=== PATIENT | female | born 1940 | race Caucasian/White ===

== ENCOUNTER 2024-07-12 16:14 | Inpatient (IN) | payer MEDICARE, MEDICAID, SELFPAY ==
[2024-07-12] VITALS (11 sets, daily range): BP systolic 144–183; BP diastolic 81–94; PULSE 60–98; RESP 16–20; TEMP 36.1–37.1; O2SAT 95–100; BMI 29.2
--- NOTE | 2024-07-12 16:59 | EDNOTE_ITS ---
ED General RME/HPI General Chief complaint: General Adult/Misc Complain Stated complaint: HIGH BLOOD SUGAR Time Seen by Provider: 07/12/24 16:15 Arrival date/time: 07/12/24 16:14 CC: Hyperglycemia HPI patient presents the ER via EMS clutching a comfortable EMS report the patient has stable vital signs. Patient is awake. Reported the patient was given several doses of insulin Route of delivery is unknown, the patient's blood sugar continues to rise . Review of the paperwork given with the patient from [facility] shows the patient was given a total of 22 units since 10 AM with a rising glucose that went from 200-500. Patient is awake with slurred speech. 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 Unaware if this is a baseline mentation or not. Patient is a DNR with selective treatment. Related Data Home Medications ?Medication ?Instructions ?Recorded ?Confirmed bisacodyl 10 mg rectal suppository 10 mg PA Q72H PRN C onstipation 03/21/23 10/15/23 (Dulcolax (bisacodyl)) acetaminophen 325 mg tablet 325 mg PO QID PRN Pain, Mi ld 10/15/23 10/15/23 (Tylenol) artificial tears(hypromellose) 0.3 1 drp ophthalmic (e ye) Q6H PRN Dry 10/15/23 10/15/23 % eye drops Eyes insulin lispro 100 unit/mL See Protocol subcut AC 09/2910/15/23 subcutaneous pen prochlorperazine 25 mg rectal 25 mg PA Q8HR PRN Vomiti ng 10/15/23 10/15/23 suppository Allergies Allergy/AdvReac Type Severity Reaction Status Date / Time carvedilol Allergy Verified 04/08/21 21:24 Cephalosporins Allergy Verified 04/08/21 21:24 Penicillins Allergy Verified 04/08/21 21:24 Past Medical History Past Medical History NEUROLOGIC: Positive Neurological Disorders and Dementia CARDIAC: Positive Cardiac Disorders and Hypertension; Negative Congestive Heart Failure RESPIRATORY: Positive Asthma; Negative Chronic Obstructive Pulmonary Disease (COPD) GENITOURINARY: Positive Renal Disease MUSCULOSKELETAL: Positive Gout ENDOCRINE: Positive Diabetes Mellitus Type 2; Negative Diabetes Mellitus Type 1 HEMATOLOGIC: Negative Sickle Cell Disease PSYCHO/SOCIAL: Positive Depression OTHER HISTORY: Positive Falls Social History SMOKING STATUS: Unknown if ever smoked SUBSTANCE USE: unknown ED Exam Narrative Physical exam: [General: Appears not in any acute distress Head normocephalic HEENT: Within acceptable limits Neck is supple nontender Chest equal chest rise nontender to palpation Respiratory: Clear to auscultation no wheezes crackles or rubs CV: Rate rhythm is regular no murmurs rubs or clicks Abdomen is soft nontender no masses positive bowel sounds all 4 quadrants Back: No CVA tenderness no spinous process tenderness from cervical spine thoracic and lumbar spine Skin: Intact no petechiae rash induration ulceration or crepitus Extremities: Moving all extremity against resistance cap refill less than 2 seconds neurosensory intact Neuro: Awake moving all extremities spontaneously. Course Quality Measures none Orders Category Date Time Status Glucose [Bedside Blood Glucose] NOW Care 07/12/24 16:16 Active Insert IV NOW Care 07/12/24 17:08 Active BMP [Basic Metabolic Panel] Stat Lab 07/12/24 20:14 Completed CBC Stat Lab 07/12/24 17:05 Completed CMP [Comprehensive Metabolic Panel] Stat Lab 07/12/24 17:05 Completed Potassium Stat Lab 07/12/24 18:05 Completed Urinalysis Stat Lab 07/12/24 16:45 Ordered ALBUTEROL RT 0.5ml [Proventil Rt 0.5ml] Med 07/12/24 18:36 Discontinued 2.5 mg INH X1 ONE Calcium Gluconate 10% Inj Med 07/12/24 18:36 Discontinued 1 gm IV X1 ONE Calcium Gluconate 10% Inj Med 07/12/24 18:45 Discontinued 1 gm IV X1 ONE Dextrose 50% Syr [D50w Syringe Abboject] Med 07/12/24 18:36 Discontinued 25 ml IV X1 ONE Insulin Regular Med 07/12/24 18:36 Discontinued 5 unit IV X1 ONE Sodium Chloride 0.9% 1000 ml [Ns] 1,000 ml Med 07/12/24 20:53 Active IV 999 mls/hr Sodium Chloride Rt Rosa 0.9% [NS Rt Rosa 0.9%] Med 07/12/24 18:36 Active 3 ml INH PRN PRN Vital Signs Vital signs: Vital Signs Temperature 98.5 F 07/12/24 16:43 Pulse Rate 98 07/12/24 16:43 Respiratory Rate 18 07/12/24 16:43 Blood Pressure 183/81 H 07/12/24 16:43 Pulse Oximetry (%) 98 07/12/24 16:43 Oxygen Delivery Method Room Air 07/12/24 16:43 [facility] Patient data External records reviewed:: [facility] previous records and EMS form Clinical information provided by:: patient and EMS Social determinants that could affect healthcare access:: none Patient has the following chronic illnesses:: CVA diabetes anxiety dementia How is presenting disease/condition affected by chronic disease/condition?: u neffected by Evaluation data The following diagnostics were reviewed and interpreted by me:: lab results Lab and/or radiology exams considered but not ordered:: CBC shows no leukocytosis H&H of 9.8 and 29.7 respectively platelet count 106. CMP shows a potassium of 5.4 after being corrected from 6.4-6.0 progressively chloride of 118 gap of 6 BUN 51 creatinine 1.8 glucose 175 mild transaminitis T. bili 8.2 Interpretation Summary: Patient was initially brought for hyperkalemia after giving large doses of insulin at [facility] care facility however we also found out the patient and elevated potassium initially was 6.4 having had a redrawn to see if it was an apparent draw, the potassium came back 6.0. After intervention with the exception of Kayexalate potassium is dropped to 5.4. This time is expected patient needs more time and additional medications to decrease the potassium patient's case discussed with Dr. Terry who agrees to accept the patient for hyperkalemia. Medications Medications considered but not ordered:: None Medication administrations:: Medication Administration History Sodium Chloride (Ns) 1,000 mls @ 999 mls/hr IV .Q1H1M ONE Stop: 07/12/24 21:53 Sodium Chloride (Sodium Chloride Rt Rosa 0.9% 3 Ml Nebu) 3 ml INH PRN PRN PRN Reason: SOLN Stop: 08/11/24 18:35 Last Admin: 07/12/24 18:44 Dose: 3 ml Documented By: Discontinued Medications Albuterol (Albuterol Rt 2.5 Mg/0.5 Ml Nebu) 2.5 mg INH X1 ONE Stop: 07/12/24 18:37 Last Admin: 07/12/24 18:44 Dose: 2.5 mg Documented By: Calcium Gluconate (Calcium Gluconate 10% Inj 1 Gm/10 Ml Vial) 1 gm IV X1 ONE Stop: 07/12/24 18:37 Last Admin: 07/12/24 19:06 Dose: Not Given Documented By: CCT Non-Admin Reason: Duplicate Medication on eMAR Calcium Gluconate (Calcium Gluconate 10% Inj 1 Gm/10 Ml Vial) 1 gm IV X1 ONE Stop: 07/12/24 18:46 Last Admin: 07/12/24 18:45 Dose: 1 gm Documented By: DB Dextrose (Dextrose 50%-Water Inj 50 Ml Syringe) 25 ml IV X1 ONE Stop: 07/12/24 18:37 Last Admin: 07/12/24 18:45 Dose: 25 ml Documented By: DB Insulin Human Regular (Insulin Hum Regular 1 Unit/0.01 Ml (Per Unit)) 5 unit IV X1 ONE Stop: 07/12/24 18:37 Last Admin: 07/12/24 18:48 Dose: 5 unit Documented By: JANIS Co-signed By: SHELBIE None Consultations Consultation(s) initiated? (list below): No Diagnosis Differential Diagnosis ED Complaint MDM: Hyperglycemia high per kalemia NEVA Most likely diagnosis given after review of the tests above:: Acute on chronic NEVA, hyperkalemia Admission Indicated Admission indicated?: indicated Explain why admission is indicated or not indicated:: Further medical management Admission Request Was there a request for admission?: No Disposition Plan Disposition Plan: Admit Medical Decision Making Differential Diagnosis Differential Diagnosis: Hyperglycemia high per kalemia NEVA Lab Data 07/12/24 17:05 07/12/24 20:14 Labs: Lab Results 07/12/24 07/12/24 07/12/24 Range/Units 17:05 18:05 20:14 WBC 4.7 (3.6-11.0) Thou/mm3 RBC 3.21 L (4.00-5.20) Miln/mm3 Hgb 9.8 L (12.0-16.0) g/dL Hct 29.7 L (36.0-46.0) % MCV 93 (80-100) fL MCH 30.5 (25.0-35.0) pg MCHC 33.0 (31.0-37.0) g/dl RDW Std Deviation 51.2 H (36.4-46.3) fL Plt Count 106 L (140-440) Thou/mm3 Neut % (Auto) 56 (37-80) % Lymph % (Auto) 34 (10-50) % Curry % (Auto) 7 (0-12) % Eos % (Auto) 3 (0-10) % Baso % (Auto) 0 (0-2.5) % Neut # (Auto) 2.6 (1.8-7.7) Thou/mm3 Lymph # (Auto) 1.6 (1.0-4.8) Thou/mm3 Curry # (Auto) 0.3 (0.0-0.8) Thou/mm3 Eos # (Auto) 0.1 (0.0-0.5) Thou/mm3 Baso # (Auto) 0.0 (0.0-0.2) Thou/mm3 Immature Gran # (Auto) 0.01 H (0.00-0.00) Thou/mm3 Absolute Nucleated RBC 0.00 (0.00-0.00) Thou/mm3 Immature Gran % 0 (0-0) % Nucleated RBC % 0 (0) /100 WBC Sodium 142 145 (136-145) mMol/L Potassium 6.4 H* 6.0 H 5.4 H D (3.4-5.1) mMol/L Chloride 116 H 118 H (98-107) mMol/L Carbon Dioxide 21.5 21.0 (20.0-31.0) mMol/L Anion Gap 5 L 6 L (7-16) BUN 55 H 51 H (9-23) mg/dL Creatinine 1.9 H 1.8 H (0.6-1.3) mg/dL Estim Creat Clear Calc 22.5 L 23.8 L (>60) mL/min eGFR 26 L 28 L (60 - ) See Note BUN/Creatinine Ratio 29 H 28 H (12-20) Ratio Glucose 319 H 175 H D (74-106) mg/dL Calculated Osmolality 310 H 306 H (275-295) Calcium 9.8 10.2 (8.3-10.6) mg/dL Corrected Calcium 10.3 H (8.5-10.1) mg/dL Total Bilirubin 0.2 L (0.3-1.2) mg/dL AST 89 H (0-34) U/L ALT 122 H (10-49) U/L Alkaline Phosphatase 128 H (46-116) U/L Total Protein 7.1 (5.7-8.2) gm/dL Albumin 3.4 (3.4-4.8) gm/dL Globulin 3.7 H (2.3-3.5) gm/dL Albumin/Globulin Ratio 0.9 L (1.2-2.2) Discharge Plan Plan Patient Disposition: HOME (Self Care) Prescriptions/Referrals Prescriptions/Med Rec: No Action bisacodyl [Dulcolax (bisacodyl)] 10 mg Suppository 10 mg PA Q72H PRN (Reason: Constipation) Rx Instructions: GIVE IF NO BM AFTER MOM acetaminophen [Tylenol] 325 mg Tablet 325 mg PO QID PRN (Reason: Pain, Mild) prochlorperazine 25 mg Suppository 25 mg PA Q8HR PRN (Reason: Vomiting) artificial tears(hypromellose) 0.3 % Drops 1 drp OPHTHALMIC (EYE) Q6H PRN (Reason: Dry Eyes) insulin lispro 100 unit/mL insulin pen See Protocol subcut AC Protocol: Insulin Corrective High-Dose Regimen Condition: Fingerstick Blood Glucose Dose/Route: Insulin Units Condition: 141-180 mg/dl Dose/Route: 6 units/SQ Condition: 181-220 mg/dl Dose/Route: 8 units/SQ Condition: 221-260 mg/dl Dose/Route: 10 units/SQ Condition: 261-300 mg/dl Dose/Route: 12 units/SQ Condition: 301-350 mg/dl Dose/Route: 14 units/SQ Condition: 351-400 mg/dl Dose/Route: 16 units/SQ Condition: greater than 400 mg/dl Dose/Route: 18 units/SQ Referrals: Thong Araujo MD [Primary Care Provider] - In 1 week Problem List Clinical Impression: Hyperkalemia, CKD (chronic kidney disease) Patient/Caregiver Discharge Instructions Print Language: Czech Stand Alone Forms: Shirley Award Info., Patient Portal Info Letter PA/SHELL CORE AND MOLDING SUPERVISOR Supervising Physician PA/SHELL CORE AND MOLDING SUPERVISOR Supervising Physician: Ammon Kelly ENP
[2024-07-12 17:12] LABS: Basophils % (Auto) 0 % (0-2.5); Eosinophils # (Auto) 0.1 Thou/mm3 (0.0-0.5); Eosinophils % (Auto) 3 % (0-10); Hematocrit 29.7 % (36.0-46.0); Hemoglobin 9.8 g/dL (12.0-16.0); Immature Granulocytes % (Auto) 0 % (0-0); Immature Granulocytes Auto 0.01 Thou/mm3 (0.00-0.00); Lymphocytes # (Auto) 1.6 Thou/mm3 (1.0-4.8); Lymphocytes % (Auto) 34 % (10-50); Mean Corpuscular Hemoglobin 30.5 pg (25.0-35.0); Mean Corpuscular Volume 93 fL (80-100); Monocytes # (Auto) 0.3 Thou/mm3 (0.0-0.8); Monocytes % (Auto) 7 % (0-12); Neutrophils # (Auto) 2.6 Thou/mm3 (1.8-7.7); Neutrophils % (Auto) 56 % (37-80); Nucleated Red Blood Cell % 0 /100 WBC (0); Platelet Count 106 Thou/mm3 (140-440); RDW Standard Deviation 51.2 fL (36.4-46.3); Red Blood Count 3.21 Miln/mm3 (4.00-5.20); White Blood Count 4.7 Thou/mm3 (3.6-11.0)
[2024-07-12 17:40] LABS: Alanine Aminotransferase 122 U/L (10-49); Albumin, Serum 3.4 gm/dL (3.4-4.8); Albumin/Globulin Ratio 0.9 (1.2-2.2); Alkaline Phosphatase 128 U/L (46-116); Anion Gap 5 (7-16); Aspartate Amino Transferase 89 U/L (0-34); BUN/Creatinine Ratio 29 Ratio (12-20); Bilirubin,Total 0.2 mg/dL (0.3-1.2); Blood Urea Nitrogen 55 mg/dL (9-23); Calcium 9.8 mg/dL (8.3-10.6); Calcium (Corrected) 10.3 mg/dL (8.5-10.1); Carbon Dioxide 21.5 mMol/L (20.0-31.0); Chloride 116 mMol/L (98-107); Creatinine (Component) 1.9 mg/dL (0.6-1.3); Estimated Creatinine Clearance 22.5 mL/min (>60); Globulin 3.7 gm/dL (2.3-3.5); Glucose 319 mg/dL (74-106); Osmolality,Calculated 310 (275-295); Sodium 142 mMol/L (136-145); Total Protein 7.1 gm/dL (5.7-8.2); eGFR 26 See Note
[2024-07-12 17:43] LABS: Potassium 6.4 mMol/L (3.4-5.1)
[2024-07-12] MEDS: SODIUM CHLORIDE RT SOL 0.9% 3 ML NEBU INH (18:44)
[2024-07-12] MEDS: ALBUTEROL RT 2.5 MG/0.5 ML NEBU INH (18:44)
[2024-07-12] MEDS: DEXTROSE 50%-WATER INJ 50 ML SYRINGE 25 ML IV (18:45)
[2024-07-12] MEDS: CALCIUM GLUCONATE 10% INJ 1 GM/10 ML VIAL IV (18:45)
[2024-07-12] MEDS: INSULIN HUM REGULAR 1 UNIT/0.01 ML (PER UNIT) 5 UNIT IV (18:48)
[2024-07-12 20:44] LABS: Anion Gap 6 (7-16); Calcium 10.2 mg/dL (8.3-10.6); Chloride 118 mMol/L (98-107); Potassium 5.4 mMol/L (3.4-5.1); Sodium 145 mMol/L (136-145)
[2024-07-12 20:46] LABS: BUN/Creatinine Ratio 28 Ratio (12-20); Blood Urea Nitrogen 51 mg/dL (9-23); Creatinine (Component) 1.8 mg/dL (0.6-1.3); Estimated Creatinine Clearance 23.8 mL/min (>60); Glucose 175 mg/dL (74-106); Osmolality,Calculated 306 (275-295); eGFR 28 See Note
--- NOTE | 2024-07-12 21:06 | EKG_ITS ---
[facility] Test Date: 2024-07-12 Pat Name: PILAR SHORE Department: Room: - Gender: Female Environmental Services Technician: : 1940 Requested By: Osvaldo Cherry Order Number: [id number] Reading MD: Osvaldo Cherry Measurements Intervals [place] Rate: 66 P: 58 [place]: 173 QRS: 6 QRSD: 85 T: 72 QT: 400 QTc: 421 Interpretive Statements SINUS RHYTHM WITH SINUS ARRHYTHMIA Compared to ECG 10/15/2023 14:47:05 No significant changes /store/S0/[id number]/ecg/[id number].pdf
[2024-07-12 21:13] LABS: Collection Type, Urine Catheter
[2024-07-12 21:23] LABS: Bacteria,Urine 4+; Bilirubin,Urine Negative (Negative); Blood,Urine Trace (Negative); Clarity,Urine Turbid (Clear/Hazy); Color,Urine Lt-Yellow (Lt Yel-Yel); Glucose, Urine Trace (Negative); Ketones,Urine Negative (Negative); Leukocyte Esterase,Urine Positive (Negative); Nitrite,Urine Negative (Negative); PH,Urine 5.5 (5.0-7.0); Protein,Urine 1+ (Neg - Trace); RBC,Urine 1 /hpf (0-3); Specific Gravity,Urine 1.016 (1.001-1.035); Squamous Epithelial Cell,Urine 22 /hpf (0-5); Urobilinogen,Urine Negative mg/dL (0.0-1.0); WBC,Urine 73 /hpf (0-5)
--- NOTE | 2024-07-12 21:23 | ESHP_ITS ---
Documentation for date of: 07/12/24 HPI History of Present Illness Chief complaint: Does not report due to dementia History of present illness: The patient is a 84-year-old female with a previous medical history of dementia, gout, CVA, hypertension, hyperlipidemia, who came in from [facility] due to high blood sugar in the range of 200?500 that continued to be high in spite of the receiving 22 units of insulin. She was for also was found to be hyperkalemic, received albuterol, insulin. Potassium went down to 5.4. Due to severe cognitive deficit, most of the history was taken through chart review. ED course: Blood pressure 183/81, pulse 98, afebrile, saturating well on room air. Labs showed hemoglobin 9.8, hematocrit 29.7, platelets 106, sodium 142, potassium 6.4, chloride 116, BUN 55, creatinine 1.9 (1.3 in 09/2023), glucose 319, AST 89, ALT 122, alkaline phosphatase 128. UA is pending. EKG showed sinus rhythm, QRS 85. Patient is going to be admitted for hyperkalemia for observation. Social history: Resident of [facility] Home medications: Amlodipine, glargine, kayexalate, ipratropium Surgical history: Unknown Review of Systems Review of Systems ROS Unobtainable: unobtainable due to mental status Past Medical History Past Medical History NEUROLOGIC: Positive Neurological Disorders and Dementia CARDIAC: Positive Cardiac Disorders and Hypertension; Negative Congestive Heart Failure RESPIRATORY: Positive Asthma; Negative Chronic Obstructive Pulmonary Disease (COPD) GENITOURINARY: Positive Renal Disease MUSCULOSKELETAL: Positive Gout ENDOCRINE: Positive Diabetes Mellitus Type 2; Negative Diabetes Mellitus Type 1 HEMATOLOGIC: Negative Sickle Cell Disease PSYCHO/SOCIAL: Positive Depression OTHER HISTORY: Positive Falls Social History SMOKING STATUS: Unknown if ever smoked SUBSTANCE USE: unknown Exam Vital Signs Temp Pulse Resp BP Pulse Ox O2 Del Method 98.4 F 69 18 144/89 H 95 Room Air 07/12/24 21:00 07/12/24 21:00 07/12/24 21:00 07/12/24 21:00 07/12/24 21:00 07/12/24 21:00 Narrative Exam Physical Exam General: Awake, opens eyes to speech. Does not follow commands. Hugs comfort doll. HEENT: Normocephalic, atraumatic, mucous membranes moist. Heart: Regular rate and rhythm, no murmurs. Lungs: Clear to auscultation with no wheezing or crackles. Abdomen: Soft, nondistended, nontender, positive bowel sounds. ?No guarding or rebound tenderness. Neurologic: Alert and oriented x3, no gross neurological deficit, and patient able to move all 4 extremities. Extremities: 1+ tibial edema. Skin: No rash or ecchymoses. Results: Labs 07/12/24 17:05 07/12/24 20:14 Labs: Short CBC 07/12/24 Range/Units 17:05 WBC 4.7 (3.6-11.0) Thou/mm3 Hgb 9.8 L (12.0-16.0) g/dL Hct 29.7 L (36.0-46.0) % Plt Count 106 L (140-440) Thou/mm3 BMP 07/12/24 07/12/24 07/12/24 17:05 18:05 20:14 Sodium 142 145 Potassium 6.4 H* 6.0 H 5.4 H D Chloride 116 H 118 H Carbon Dioxide 21.5 21.0 BUN 55 H 51 H Creatinine 1.9 H 1.8 H Glucose 319 H 175 H D Calcium 9.8 10.2 Liver Function 07/12/24 Range/Units 17:05 Total Bilirubin 0.2 L (0.3-1.2) mg/dL AST 89 H (0-34) U/L ALT 122 H (10-49) U/L Alkaline Phosphatase 128 H (46-116) U/L Albumin 3.4 (3.4-4.8) gm/dL Quality Measures Quality Measures VTE prophylaxis Advance care planning discussed with:: other (POLST form) Medications Home Medications and Allergies Home Medications ?Medication ?Instructions ?Recorded ?Confirmed ?Type bisacodyl 10 mg rectal suppository 10 mg TN Q72H PRN C onstipation 03/21/23 10/15/23 History (Dulcolax (bisacodyl)) acetaminophen 325 mg tablet 325 mg PO QID PRN Pain, Mi ld 10/15/23 10/15/23 History (Tylenol) artificial tears(hypromellose) 0.3 1 drp ophthalmic (e ye) Q6H PRN Dry 10/15/23 10/15/23 History % eye drops Eyes insulin lispro 100 unit/mL See Protocol subcut AC 09/2910/15/23 History subcutaneous pen prochlorperazine 25 mg rectal 25 mg TN Q8HR PRN Vomiti ng 10/15/23 10/15/23 History suppository Allergies Allergy/AdvReac Type Severity Reaction Status Date / Time carvedilol Allergy Verified 04/08/21 21:24 Cephalosporins Allergy Verified 04/08/21 21:24 Penicillins Allergy Verified 04/08/21 21:24 Visit Medications Acetaminophen (Acetaminophen 325 Mg Tablet) 650 mg PO Q6H PRN PRN Reason: Fever >101.5 Stop: 08/11/24 21:00 Amlodipine Besylate (Amlodipine Besylate 5 Mg Tablet) 10 mg PO QDAY [facility] Stop: 08/12/24 08:59 Dextrose (Dextrose 50%-Water Inj 50 Ml Syringe) 25 ml IV Q15MIN PRN PRN Reason: BG 50-70 responsive npo pt Stop: 08/11/24 21:02 Dextrose (Dextrose 50%-Water Inj 50 Ml Syringe) 50 ml IV Q15MIN PRN PRN Reason: BG <50 OR BG <70 & pt unresponsive Stop: 08/11/24 21:02 Glucagon (Glucagon Inj 1 Mg Vial) 1 mg IM Q15MIN PRN PRN Reason: BG <70, and no IV access Heparin Sodium (Porcine) (Heparin Sod Inj 5000 Unit/Ml Vial) 5,000 unit SC Q8HR [facility] Stop: 07/26/24 21:59 Sodium Chloride (Ns) 1,000 mls @ 999 mls/hr IV .Q1H1M ONE Stop: 07/12/24 21:53 Sodium Chloride (Ns) 1,000 mls @ 75 mls/hr IV .[id number] [facility] Stop: 08/11/24 21:14 Insulin Glargine (Insulin Glargine (Lantus) 5 Unit/0.05 Ml (Per 5 Units)) 20 unit SC QDAY [facility] Stop: 08/12/24 08:59 Insulin Human Lispro (Insulin Lispro (Admelog) 1 Unit/0.01 Ml Unit) 0 unit SC AC [facility]; Protocol Stop: 08/12/24 07:29 Sennosides (Senna Tablet) 1 tab PO QDAY PRN; Protocol PRN Reason: CONSTIPATION Stop: 08/11/24 21:21 Sodium Chloride (Sodium Chloride Rt Rosa 0.9% 3 Ml Nebu) 3 ml INH PRN PRN PRN Reason: SOLN Stop: 08/11/24 18:35 Last Admin: 07/12/24 18:44 Dose: 3 ml Discontinued Medications Albuterol (Albuterol Rt 2.5 Mg/0.5 Ml Nebu) 2.5 mg INH X1 ONE Stop: 07/12/24 18:37 Last Admin: 07/12/24 18:44 Dose: 2.5 mg Calcium Gluconate (Calcium Gluconate 10% Inj 1 Gm/10 Ml Vial) 1 gm IV X1 ONE Stop: 07/12/24 18:37 Last Admin: 07/12/24 19:06 Dose: Not Given Calcium Gluconate (Calcium Gluconate 10% Inj 1 Gm/10 Ml Vial) 1 gm IV X1 ONE Stop: 07/12/24 18:46 Last Admin: 07/12/24 18:45 Dose: 1 gm Dextrose (Dextrose 50%-Water Inj 50 Ml Syringe) 25 ml IV X1 ONE Stop: 07/12/24 18:37 Last Admin: 07/12/24 18:45 Dose: 25 ml Insulin Human Regular (Insulin Hum Regular 1 Unit/0.01 Ml (Per Unit)) 5 unit IV X1 ONE Stop: 07/12/24 18:37 Last Admin: 07/12/24 18:48 Dose: 5 unit Sodium Polystyrene Sulfonate (Sod Polystyrene Sulfon Susp 15 Gm/60 Ml Btl) 30 gm PO X1 ONE Stop: 07/12/24 21:03 Assessment & Plan Plan The patient is a 84-year-old female with a previous medical history of dementia, gout, CVA, hypertension, hyperlipidemia, who came in from [facility] due to high blood sugar in the range of 200?500 that continued to be high in spite of the receiving 22 units of insulin. Patient is going to be admitted for hyperkalemia for observation. #NEVA on CKD Patient's potassium level at admission was Most likely prerenal in the setting of dehydration. Received albuterol, insulin. Potassium went down to 5.4. Patient's CKD most likely in the setting of T2DM and HTN. Plan: - IV fluids - Kayexalate 30g x1 - Monitor daily CMP - NS @75 ml/hr - Potassium check at 1 AM #Type 2 DM Patient's blood sugar was in the range 200-500 at the facility. Plan: - A1c - Glargine 20 U sc qday - Sliding scale insulin with Accuchecks - Hypoglycemia protocol #Hypertension Plan: - Resumed home amlodipine #History of dementia #History of CVA - Chronic condition, stable. Health maintenance: FEN: Puree diet DVT prophylaxis: Heparin sc GI prophylaxis: None Dispo: Telemetry CODE STATUS: DNR Plan of care discussed with attending Dr. Harrison Anderson MD, PGY 1. Attending Provider Attestation/Addendum Pt was evaluated and plan formulated together with the housestaff team. I have reviewed the residents note above and agree with most of its content. Please refer to the residents note for additional details.
[2024-07-12] MEDS: SODIUM CHLORIDE 0.9% 1000 ML 1,000 ML 999 ML IV (21:25)
[2024-07-12] MEDS: HEPARIN SOD INJ 5000 UNIT/ML VIAL SC (21:25)
[2024-07-12] MEDS: SOD POLYSTYRENE SULFON SUSP 15 GM/60 ML BTL 30 GM PO (21:25)
[2024-07-12 21:26] LABS: Glucose Estimated Average 214 mg/dL (80-131); Hemoglobin A1C 9.1 % Hgb (4.8-6.0)
[2024-07-12] MEDS: SODIUM CHLORIDE 0.9% 1000 ML 1,000 ML 75 ML IV (22:20)
--- NOTE | 2024-07-12 22:38 | PC.NURSE ---
Report given to TORIE Campbell
[2024-07-13] VITALS (18 sets, daily range): BP systolic 130–186; BP diastolic 63–93; PULSE 60–96; RESP 16–19; TEMP 36.2–36.7; O2SAT 94–100; BMI 33.9; BMI 33.7
[2024-07-13] MEDS: amLODIPine BESYLATE 5 MG TABLET PO (00:51)
[2024-07-13 02:04] LABS: Potassium 5.6 mMol/L (3.4-5.1)
--- NOTE | 2024-07-13 02:34 | PC.NURSE ---
Dr. Tracy notified of recent potassium level of 5.6. New orders received.
[2024-07-13] MEDS: DEXTROSE 50%-WATER INJ 50 ML SYRINGE 100 ML IV (03:03)
[2024-07-13] MEDS: SOD POLYSTYRENE SULFON SUSP 15 GM/60 ML BTL PO (03:03)
[2024-07-13] MEDS: INSULIN HUM REGULAR 1 UNIT/0.01 ML (PER UNIT) 5 UNIT IV (03:10)
[2024-07-13 05:07] LABS: Basophils % (Auto) 1 % (0-2.5); Eosinophils # (Auto) 0.1 Thou/mm3 (0.0-0.5); Eosinophils % (Auto) 3 % (0-10); Hematocrit 27.7 % (36.0-46.0); Hemoglobin 8.9 g/dL (12.0-16.0); Immature Granulocytes % (Auto) 0 % (0-0); Immature Granulocytes Auto 0.01 Thou/mm3 (0.00-0.00); Lymphocytes # (Auto) 1.2 Thou/mm3 (1.0-4.8); Lymphocytes % (Auto) 31 % (10-50); Mean Corpuscular HGB Conc 32.1 g/dl (31.0-37.0); Mean Corpuscular Hemoglobin 30.4 pg (25.0-35.0); Mean Corpuscular Volume 95 fL (80-100); Monocytes # (Auto) 0.2 Thou/mm3 (0.0-0.8); Monocytes % (Auto) 6 % (0-12); Neutrophils # (Auto) 2.1 Thou/mm3 (1.8-7.7); Neutrophils % (Auto) 59 % (37-80); Nucleated Red Blood Cell % 0 /100 WBC (0); Platelet Count 82 Thou/mm3 (140-440); RDW Standard Deviation 51.8 fL (36.4-46.3); Red Blood Count 2.93 Miln/mm3 (4.00-5.20); White Blood Count 3.7 Thou/mm3 (3.6-11.0)
[2024-07-13 05:30] LABS: Anion Gap 8 (7-16); BUN/Creatinine Ratio 25 Ratio (12-20); Blood Urea Nitrogen 43 mg/dL (9-23); Calcium 9.4 mg/dL (8.3-10.6); Carbon Dioxide 18.7 mMol/L (20.0-31.0); Chloride 118 mMol/L (98-107); Creatinine (Component) 1.7 mg/dL (0.6-1.3); Estimated Creatinine Clearance 25.2 mL/min (>60); Glucose 353 mg/dL (74-106); Osmolality,Calculated 313 (275-295); Potassium 4.6 mMol/L (3.4-5.1); Sodium 145 mMol/L (136-145); eGFR 30 See Note
--- NOTE | 2024-07-13 05:57 | PC.NURSE ---
Dr. Tracy notified of elevated BP 177/71 and HR 81. New orders received. He was also updated on latest potassium level and blood sugar.
[2024-07-13] MEDS: hydrALAZINE HCL 25 MG TABLET PO (06:17)
[2024-07-13] MEDS: HEPARIN SOD INJ 5000 UNIT/ML VIAL SC ×3 (06:18→21:44)
[2024-07-13] MEDS: INSULIN LISPRO (AdmeLOG) 1 UNIT/0.01 ML UNIT SC ×3 (07:11→17:22)
[2024-07-13 08:51] LABS: Lactate (Lactic Acid) 1.7 mMol/L (0.4-2.0)
[2024-07-13] MEDS: amLODIPine BESYLATE 5 MG TABLET 10 MG PO (08:53)
[2024-07-13] MEDS: RINGERS LACTATED 1000 ML 1,000 ML 999 ML IV (08:53)
[2024-07-13] MEDS: INSULIN GLARGINE (Lantus) 5 UNIT/0.05 ML (PER 5 UNITS) 20 UNIT SC (08:56)
[2024-07-13] MEDS: INSULIN HUM REGULAR 1 UNIT/0.01 ML (PER UNIT) 10 UNIT SC (08:56)
[2024-07-13] MEDS: CIPROFLOXACIN/D5w 200 MG IVPB 200 MG/100 ML BAG 100 MG IV ×2 (11:29→21:37)
[2024-07-13 11:30] LABS: Sodium,Urine Random 57.1 mMol/L (20.0-110.0)
[2024-07-13] MEDS: INSULIN LISPRO (AdmeLOG) 1 UNIT/0.01 ML UNIT 15 UNIT SC (11:54)
[2024-07-13 12:04] LABS: Allen Test Performed/OK; Base Excess -5 (-3-3); HCO3 19 mEq/L (20-26); Inspired Oxygen, FIO2 98 %; O2 Saturation 99 % (91-98); PCO2 30 mmHg (32.0-48.0); PO2 94 mmHg (83-108); Puncture Site Right Radial
[2024-07-13 13:00] LABS: Albumin, Serum 3.1 gm/dL (3.4-4.8); Anion Gap 6 (7-16); BUN/Creatinine Ratio 25 Ratio (12-20); Blood Urea Nitrogen 40 mg/dL (9-23); Calcium 9.1 mg/dL (8.3-10.6); Calcium (Corrected) 9.8 mg/dL (8.5-10.1); Carbon Dioxide 20.8 mMol/L (20.0-31.0); Chloride 116 mMol/L (98-107); Creatinine (Component) 1.6 mg/dL (0.6-1.3); Estimated Creatinine Clearance 28.9 mL/min (>60); Magnesium 1.5 mg/dL (1.6-2.6); Osmolality,Calculated 311 (275-295); Phosphorous 2.9 mg/dL (2.4-5.1); Potassium 4.7 mMol/L (3.4-5.1); Sodium 143 mMol/L (136-145); eGFR 32 See Note
[2024-07-13 13:01] LABS: Glucose 409 mg/dL (74-106)
[2024-07-13] MEDS: RINGERS LACTATED 1000 ML 1,000 ML 200 ML IV ×2 (13:53→21:39)
[2024-07-13] MEDS: Magnesium Sulfate 2 GM Ivpb 2 GM/50 ML BAG IV (13:54)
[2024-07-13 14:52] LABS: Anion Gap 7 (7-16); BUN/Creatinine Ratio 22 Ratio (12-20); Blood Urea Nitrogen 38 mg/dL (9-23); Calcium 8.9 mg/dL (8.3-10.6); Calcium (Corrected) 9.7 mg/dL (8.5-10.1); Carbon Dioxide 20.3 mMol/L (20.0-31.0); Chloride 114 mMol/L (98-107); Creatinine (Component) 1.7 mg/dL (0.6-1.3); Estimated Creatinine Clearance 27.2 mL/min (>60); Glucose 370 mg/dL (74-106); Osmolality,Calculated 305 (275-295); Phosphorous 2.7 mg/dL (2.4-5.1); Potassium 4.7 mMol/L (3.4-5.1); Sodium 141 mMol/L (136-145); eGFR 30 See Note
--- NOTE | 2024-07-13 14:53 | ESPR_ITS ---
<Statement entered by Brooklyn Mahoney MD - 07/17/24 13:00> I reviewed above note and agree with findings and plans. I have also personally examined the patient with medicine team and went over assessment and plan with medical team including marketing research intern and resident physician. Documentation for date of: 07/13/24 Senior resident attestation: The patient is a 84-year-old female past medical history dementia, gout, CVA, hypertension hyperlipidemia, who admitted to the hospital with chief complaint of altered mental status, UTI and NEVA with hyperkalemia. Received hyperkalemia cocktail in the ER, found to have blood glucose levels ranging from 400, serum osmolarity more than 300. There was concern for hyperosmolar hyperglycemic syndrome, the patient did not meet diagnostic criteria but was preemptively treated with aggressive IV fluids and subcu insulin. Repeated renal panel in the afternoon, showed improvement in serum osmolarity and electrolytes. Patient evaluated and examined at the bedside, plan of care discussed with rest of the team including my attending physician, except as noted. Quresh PGY2 Subjective Subjective Interval history: Overnight admission. Patient at baseline is alert but not orieted to self, place, or time and has dementia at baseline. Patient was unable to communicate to communicate if there was any pain. Patient did grimace and groan in pain when supra-pubic region was palpated. Pateint maintained her legs crossed, and grimaced when resident tried to move her legs. UA was noted to have Turbid urine, glucose, poitive esterase, and bacteria 4+. Patients glucose level remained elevated through out floor course, despite numerous attempts to decrease with Regular Insulin X 10 SC and Lispro 15 units SubQ. Patient blood sugar by 6 PM on 07/13/2024 was at 184. Sliding Scale remains in place. Patient continued to have good urine output. Patient started on Cipro. Patient continued to have several wet diapers through out the day. Bladder scan showed no urinary retention. Please follow up with Renal panel at 6 PM and 9 PM to access kidney function, Potassium, and glucose. Exam Vital Signs Temp Pulse Resp BP Pulse Ox O2 Del Method 97.9 F 96 16 154/63 H 100 Room Air 07/13/24 11:42 07/13/24 11:42 07/13/24 11:42 07/13/24 11:42 07/13/24 11:42 07/13/24 11:42 Narrative Exam General Appearance: Alert & Oriented X0, thin female who is lying in bed in no acute distress HEENT: Skull symmetrical and atraumatic. Conjunctivae pin and moist. Pupils equal, round, reactive to light and accommodation (PERRL). External ear without lesion or discharge. Straight, nares patient, mucosa pink, no discharge. No thyroid nodule appreciated. No cervical lymphadenopathy. Cardio: Normal Rate and Rhythm with S1 and S2 heart sounds. No murmurs or extra heart sounds auscultated. No bruits on carotid auscultation. No peripheral edema or cyanosis. Lungs: Symmetric with good expansion. Chest and back non-tender. Breath sounds vesicular without crackles, wheezing or rhonchi Abdomen: Non-tender, Non-distended, Normal Reactive Bowel Sounds, tenderness on supra-pubic palpation but no distention noted. Neuro: YES Alert, NO cooperative, No oriented to person, No place, and time. No Speech clear. CN grossly intact. Upper motor strength 5/5 and Lower motor strength 5/5. Sensation intact. Objective Labs 07/14/24 05:22 07/14/24 05:22 Labs: Laboratory Results - last 24 hr 07/12/24 07/12/24 07/12/24 17:05 18:05 20:14 WBC 4.7 RBC 3.21 L Hgb 9.8 L Hct 29.7 L MCV 93 MCH 30.5 MCHC 33.0 RDW Std Deviation 51.2 H Plt Count 106 L Neut % (Auto) 56 Lymph % (Auto) 34 Dickey % (Auto) 7 Eos % (Auto) 3 Baso % (Auto) 0 Neut # (Auto) 2.6 Lymph # (Auto) 1.6 Dickey # (Auto) 0.3 Eos # (Auto) 0.1 Baso # (Auto) 0.0 Immature Gran # (Auto) 0.01 H Absolute Nucleated RBC 0.00 Immature Gran % 0 Nucleated RBC % 0 Puncture Site ABG pH ABG pCO2 ABG pO2 ABG HCO3 ABG O2 Saturation ABG Base Excess FiO2 Sodium 142 145 Potassium 6.4 H* 6.0 H 5.4 H D Chloride 116 H 118 H Carbon Dioxide 21.5 21.0 Anion Gap 5 L 6 L BUN 55 H 51 H Creatinine 1.9 H 1.8 H Estim Creat Clear Calc 22.5 L 23.8 L eGFR 26 L 28 L BUN/Creatinine Ratio 29 H 28 H Glucose [address] Glu mg/dL 214 H Hemoglobin A1c 9.1 H Calculated Osmolality 310 H 306 H Lactic Acid Calcium 9.8 10.2 Corrected Calcium 10.3 H Phosphorus Magnesium Total Bilirubin 0.2 L AST 89 H ALT 122 H Alkaline Phosphatase 128 H Total Protein 7.1 Albumin 3.4 Globulin 3.7 H Albumin/Globulin Ratio 0.9 L Ur Collection Type Urine Color Urine Clarity Urine pH Ur Specific Buckner Urine Protein Urine Glucose (UA) Urine Ketones Urine Blood Urine Nitrite Urine Bilirubin Urine Urobilinogen (Auto) Ur Leukocyte Esterase Urine RBC Urine WBC Ur Squamous Epith Cells Urine Bacteria Ur Random Sodium 07/12/24 07/13/24 07/13/24 21:00 01:22 04:15 WBC 3.7 RBC 2.93 L Hgb 8.9 L Hct 27.7 L MCV 95 MCH 30.4 MCHC 32.1 RDW Std Deviation 51.8 H Plt Count 82 L D Neut % (Auto) 59 Lymph % (Auto) 31 Dickey % (Auto) 6 Eos % (Auto) 3 Baso % (Auto) 1 Neut # (Auto) 2.1 Lymph # (Auto) 1.2 Dickey # (Auto) 0.2 Eos # (Auto) 0.1 Baso # (Auto) 0.0 Immature Gran # (Auto) 0.01 H Absolute Nucleated RBC 0.00 Immature Gran % 0 Nucleated RBC % 0 Puncture Site ABG pH ABG pCO2 ABG pO2 ABG HCO3 ABG O2 Saturation ABG Base Excess FiO2 Sodium 145 Potassium 5.6 H 4.6 D Chloride 118 H Carbon Dioxide 18.7 L Anion Gap 8 BUN 43 H Creatinine 1.7 H Estim Creat Clear Calc 25.2 L eGFR 30 L BUN/Creatinine Ratio 25 H Glucose [address] Glu mg/dL Hemoglobin A1c Calculated Osmolality 313 H Lactic Acid Calcium 9.4 Corrected Calcium Phosphorus Magnesium Total Bilirubin AST ALT Alkaline Phosphatase Total Protein Albumin Globulin Albumin/Globulin Ratio Ur Collection Type Catheter Urine Color Lt-Yellow Urine Clarity Turbid A Urine pH 5.5 Ur Specific Buckner 1.016 Urine Protein 1+ A Urine Glucose (UA) Trace Urine Ketones Negative Urine Blood Trace Urine Nitrite Negative Urine Bilirubin Negative Urine Urobilinogen (Auto) Negative Ur Leukocyte Esterase Positive Urine RBC 1 Urine WBC 73 H Ur Squamous Epith Cells 22 H Urine Bacteria 4+ A Ur Random Sodium 07/13/24 07/13/24 07/13/24 08:37 09:43 11:54 WBC RBC Hgb Hct MCV MCH MCHC RDW Std Deviation Plt Count Neut % (Auto) Lymph % (Auto) Dickey % (Auto) Eos % (Auto) Baso % (Auto) Neut # (Auto) Lymph # (Auto) Dickey # (Auto) Eos # (Auto) Baso # (Auto) Immature Gran # (Auto) Absolute Nucleated RBC Immature Gran % Nucleated RBC % Puncture Site Right Radial ABG pH 7.40 ABG pCO2 30 L ABG pO2 94 ABG HCO3 19 L ABG O2 Saturation 99 H ABG Base Excess -5 L FiO2 98 Sodium Potassium Chloride Carbon Dioxide Anion Gap BUN Creatinine Estim Creat Clear Calc eGFR BUN/Creatinine Ratio Glucose Estimated Ave Glu mg/dL Hemoglobin A1c Calculated Osmolality Lactic Acid 1.7 Calcium Corrected Calcium Phosphorus Magnesium Total Bilirubin AST ALT Alkaline Phosphatase Total Protein Albumin Globulin Albumin/Globulin Ratio Ur Collection Type Urine Color Urine Clarity Urine pH Ur Specific Buckner Urine Protein Urine Glucose (UA) Urine Ketones Urine Blood Urine Nitrite Urine Bilirubin Urine Urobilinogen (Auto) Ur Leukocyte Esterase Urine RBC Urine WBC Ur Squamous Epith Cells Urine Bacteria Ur Random Sodium 57.1 07/13/24 07/13/24 12:02 14:16 WBC RBC Hgb Hct MCV MCH MCHC RDW Std Deviation Plt Count Neut % (Auto) Lymph % (Auto) Dickey % (Auto) Eos % (Auto) Baso % (Auto) Neut # (Auto) Lymph # (Auto) Dickey # (Auto) Eos # (Auto) Baso # (Auto) Immature Gran # (Auto) Absolute Nucleated RBC Immature Gran % Nucleated RBC % Puncture Site ABG pH ABG pCO2 ABG pO2 ABG HCO3 ABG O2 Saturation ABG Base Excess FiO2 Sodium 143 141 Potassium 4.7 4.7 Chloride 116 H 114 H Carbon Dioxide 20.8 20.3 Anion Gap 6 L 7 BUN 40 H 38 H Creatinine 1.6 H 1.7 H Estim Creat Clear Calc 28.9 L 27.2 L eGFR 32 L 30 L BUN/Creatinine Ratio 25 H 22 H Glucose 409 H* D [address] Glu mg/dL Hemoglobin A1c Calculated Osmolality 311 H 305 H Lactic Acid Calcium 9.1 8.9 Corrected Calcium 9.8 9.7 Phosphorus 2.9 2.7 Magnesium 1.5 L Total Bilirubin AST ALT Alkaline Phosphatase Total Protein Albumin 3.1 L 3.0 L Globulin Albumin/Globulin Ratio Ur Collection Type Urine Color Urine Clarity Urine pH Ur Specific Buckner Urine Protein Urine Glucose (UA) Urine Ketones Urine Blood Urine Nitrite Urine Bilirubin Urine Urobilinogen (Auto) Ur Leukocyte Esterase Urine RBC Urine WBC Ur Squamous Epith Cells Urine Bacteria Ur Random Sodium ABG Interpretation ABG results: 07/13/24 11:54 ABG pH 7.40 ABG pCO2 30 L ABG pO2 94 ABG HCO3 19 L ABG O2 Saturation 99 H ABG Base Excess -5 L Quality Measures Quality Measures VTE prophylaxis Advance care planning discussed with:: patient Assessment & Plan Assessment Current Active Medications: Generic Name Dose Route Start Last Admin Trade Name Freq PRN Reason Stop Dose Admin Acetaminophen 650 mg 07/12/24 21:01 Acetaminophen 325 Mg Tablet PO 08/11/24 21:00 Q6H PRN Fever >101.5 Albuterol/Ipratropium 3 ml 07/12/24 21:43 Albuterol/Ipratropium (Duoneb) Rt Rosa 3 Ml Nebu INH 08/11/24 21:42 Q2HR PRN SHORTNESS OF BREATH OR WHEEZE Amlodipine Besylate 10 mg 07/13/24 09:00 07/13/24 08:53 Amlodipine Besylate 5 Mg Tablet PO 08/12/24 08:59 10 mg QDAY MAIRA Administration Dextrose 25 ml 07/12/24 21:03 Dextrose 50%-Water Inj 50 Ml Syringe IV 08/11/24 21:02 Q15MIN PRN BG 50-70 responsive npo pt Dextrose 50 ml 07/12/24 21:03 Dextrose 50%-Water Inj 50 Ml Syringe IV 08/11/24 21:02 Q15MIN PRN BG <50 OR BG <70 & pt unresponsive Glucagon 1 mg 07/12/24 21:03 Glucagon Inj 1 Mg Vial IM Q15MIN PRN BG <70, and no IV access Heparin Sodium (Porcine) 5,000 unit 07/12/24 22:00 07/13/24 13:02 Heparin Sod Inj 5000 Unit/Ml Vial SC 07/26/24 21:59 5,000 unit Q8HR MAIRA Administration Hydralazine HCl 10 mg 07/13/24 08:10 Hydralazine Inj 20 Mg/Ml Vial IV 08/12/24 08:09 Q4HR PRN Hypertension Ciprofloxacin/Dextrose 200 mg in 100 mls @ 100 mls/hr 07/13/24 10:27 07/13/24 11:29 Cipro Ivpb IV 07/20/24 10:26 100 mls/hr Q12HR MAIRA Administration Magnesium Sulfate 2 gm in 50 mls @ 25 mls/hr 07/13/24 13:32 07/13/24 13:54 Magnesium Sulfate Ivpb IV 07/13/24 15:31 25 mls/hr X1 ONE Administration Lactated Ringer's 1,000 mls @ 200 mls/hr 07/13/24 13:38 07/13/24 13:53 Lactated Ringers IV 07/16/24 13:37 200 mls/hr .Q5H MAIRA Administration Insulin Glargine 20 unit 07/14/24 09:00 Insulin Glargine (Lantus) 5 Unit/0.05 Ml (Per 5 Units) SC 08/13/24 08:59 QDAY MAIRA Insulin Human Lispro 0 unit 07/13/24 07:30 07/13/24 11:29 Insulin Lispro (Admelog) 1 Unit/0.01 Ml Unit SC 08/12/24 07:29 4 unit AC MAIRA Administration Protocol Sennosides 1 tab 07/12/24 21:22 Senna Tablet PO 08/11/24 21:21 QDAY PRN CONSTIPATION Protocol Sodium Chloride 3 ml 07/12/24 18:36 07/12/24 18:44 Sodium Chloride Rt Rosa 0.9% 3 Ml Nebu INH 08/11/24 18:35 3 ml PRN PRN Administration SOLN Plan The patient is a 84-year-old female with a previous medical history of dementia, gout, CVA, hypertension, hyperlipidemia, who came in from [facility] secondary to hyperkalemia and hyperglycemia. #Hyperglycemia #Diabetes Mellitus Type 2, insulin dependent Per chart review, patient's glucose ranged from 400s to 500s at [facility] where patient lives and on admission patient's glucose was 319, this is despite getting 22 units of insulin. Subsequently during morning labs patient's fasting glucose was noted to be 409, patient was given 10 units of regular insulin subcu, 7 units of sliding scale of lispro, 15 units of lispro subcu at 12 PM as patient's glucose remained elevated in the 400s. Patient's glargine 20 units given at approximately 9 AM. During morning shift yolanda recieved a total insulin of--52 units of insulin. Given patient hyperglycemia, hyper-osmolarity at 313, patient was moving towards a hyperosmolar hyperglycemic state. Diagnostics: A1c 07/12/2024 9.1 and Fasting Glucose of 409. Plan -Glargine 20 units QDay -Lispro Slidng Scale Q6HRS -Lacted Ringer @ 200cs -Please follow up with bedside glucose -Hypoglycemia, glucagon in place, if need be please given IVP of dextrose 20- 50ml #NEVA on CKD Yolanda has a past medical history of CKD with GFR flutuating between 20s-30 putting patient at stage III vs IV. Previous admission patient's best Cr is between 1.3-1.4. This Creatine in a increase of >0.3 on this admission as Cr was 1.8. Likely pre-renal given BUN/Cr >20 and patient appears hypovolemic with oral mucosa dry. Obstructive secondary to urinary retention can not be ruled out but patient has been having several wet diapers and no supra-pubic distention was not on physical exam. Plan -LR @ 200 -Avoid nephrotoxins -renally dose medication (Cipro has no renal dosing adjustments) -Continue to monitor Cr, BUN #Hypernatremia, Hyerosmolar, Hypovolemic Patient presented with osmolarity of 313, corrected Na of 150 and hypovolemic on clinical exam. Urine Na was 56, thus greater than >20. Hypernatremia likely secodnary to glycosuria given hyperglycemia vs renal failure which can not be ruled out given NEVA on CKD Total water deficiet 3.2 liters with idea calcuation of 142 Plan -Continue LR @200, please decrease if patient contiues to improve and reaches 140 w/ corrected glucose -continue to montior #Hyperkalemia, improved Likely secondary to NEVA on CKD. Patient was given hyperkalemia treatment on admission w/ calcium and insulin admistered. Improved. Plan -Please follow up with renal funciton at 6 PM and 9 PM #Non Anion Gap Metabolic Acidosis Patient presented with a non-anion gap of 8, bicarb of 18.7, chloride of 118, and lactic acid of 1.7 with morning labs. ABG did not show a acidosis. Given this normal pattern RTA can not be ruled out vs saline infustion vs medication induced which would be less likely. Plan -Urine sodium -consider toxicology if patient does not improve -Consider urine elctrolytes if patient does not improved -continue to monitor #Hypertension Patient home medication resumed. Plan -Please monitor BP given maintenance fluid is on board -Please give hydralazine if BP >160 or diastolic BP >110, patient has a carvedilol allergy #uncomplicated UTI Given UA showing many bacteria, grimancing on physical exam, patient was started on Cipro. Yeast infection can not be ruled out given past medical history of diabetes mellitus. Plan -Urine Culture pending -Cipro 07/13/2024 Health Maintenance: Disp: Pt is currently admitted to floors for further management of hyperglycemia and hypernatremia, awaiting urine culture and improved glucose FEN: dysphagia, low carb consistent DVT: on subQ heparin Code: DNR - The patient's plan was discussed with attending Dr. Mahoney and senior residents Dr. Temi Barrera MD PGY1 Internal Medicine
--- NOTE | 2024-07-13 15:16 | PC.SS ---
Rounding: monitoring blood sugars
--- NOTE | 2024-07-13 15:55 | PC.NURSE ---
Pt transported to telemetry via hospital bed with Silvia VOGT. No signs of distress
[2024-07-13 17:24] LABS: Anion Gap 6 (7-16); BUN/Creatinine Ratio 23 Ratio (12-20); Blood Urea Nitrogen 35 mg/dL (9-23); Calcium 9.2 mg/dL (8.3-10.6); Carbon Dioxide 20.5 mMol/L (20.0-31.0); Chloride 116 mMol/L (98-107); Creatinine (Component) 1.5 mg/dL (0.6-1.3); Estimated Creatinine Clearance 30.8 mL/min (>60); Glucose 228 mg/dL (74-106); Osmolality,Calculated 298 (275-295); Phosphorous 2.7 mg/dL (2.4-5.1); Potassium 4.6 mMol/L (3.4-5.1); Sodium 142 mMol/L (136-145); eGFR 34 See Note
[2024-07-13 22:06] LABS: Albumin, Serum 2.9 gm/dL (3.4-4.8); Anion Gap 8 (7-16); BUN/Creatinine Ratio 24 Ratio (12-20); Blood Urea Nitrogen 36 mg/dL (9-23); Carbon Dioxide 19.8 mMol/L (20.0-31.0); Chloride 114 mMol/L (98-107); Creatinine (Component) 1.5 mg/dL (0.6-1.3); Estimated Creatinine Clearance 30.8 mL/min (>60); Glucose 194 mg/dL (74-106); Osmolality,Calculated 296 (275-295); Phosphorous 2.4 mg/dL (2.4-5.1); Potassium 4.7 mMol/L (3.4-5.1); Sodium 142 mMol/L (136-145); eGFR 34 See Note
[2024-07-13 22:07] LABS: Calcium (Corrected) 9.9 mg/dL (8.5-10.1)
[2024-07-14] VITALS (8 sets, daily range): BP systolic 142–168; BP diastolic 58–83; PULSE 59–74; RESP 16–27; TEMP 36.2–36.8; O2SAT 95–99; BMI 34.6
[2024-07-14] MEDS: RINGERS LACTATED 1000 ML 1,000 ML 200 ML IV (02:53)
[2024-07-14 05:50] LABS: Basophils % (Auto) 0 % (0-2.5); Eosinophils # (Auto) 0.2 Thou/mm3 (0.0-0.5); Eosinophils % (Auto) 3 % (0-10); Hematocrit 24.8 % (36.0-46.0); Immature Granulocytes % (Auto) 0 % (0-0); Immature Granulocytes Auto 0.02 Thou/mm3 (0.00-0.00); Lymphocytes % (Auto) 41 % (10-50); Mean Corpuscular HGB Conc 32.7 g/dl (31.0-37.0); Mean Corpuscular Hemoglobin 30.6 pg (25.0-35.0); Mean Corpuscular Volume 94 fL (80-100); Monocytes # (Auto) 0.4 Thou/mm3 (0.0-0.8); Monocytes % (Auto) 9 % (0-12); Neutrophils # (Auto) 2.3 Thou/mm3 (1.8-7.7); Neutrophils % (Auto) 46 % (37-80); Nucleated Red Blood Cell % 0 /100 WBC (0); Platelet Count 87 Thou/mm3 (140-440); RDW Standard Deviation 51.5 fL (36.4-46.3); Red Blood Count 2.65 Miln/mm3 (4.00-5.20)
[2024-07-14] MEDS: HEPARIN SOD INJ 5000 UNIT/ML VIAL SC ×3 (05:54→21:11)
[2024-07-14 05:55] LABS: Hemoglobin 8.1 g/dL (12.0-16.0)
[2024-07-14 06:12] LABS: Anion Gap 5 (7-16); BUN/Creatinine Ratio 21 Ratio (12-20); Blood Urea Nitrogen 32 mg/dL (9-23); Carbon Dioxide 21.8 mMol/L (20.0-31.0); Chloride 116 mMol/L (98-107); Creatinine (Component) 1.5 mg/dL (0.6-1.3); Estimated Creatinine Clearance 30.8 mL/min (>60); Glucose 126 mg/dL (74-106); Magnesium 1.6 mg/dL (1.6-2.6); Osmolality,Calculated 293 (275-295); Phosphorous 2.6 mg/dL (2.4-5.1); Potassium 4.5 mMol/L (3.4-5.1); Sodium 143 mMol/L (136-145); Uric Acid 8.4 mg/dL (3.1-7.8); eGFR 34 See Note
[2024-07-14] MEDS: CIPROFLOXACIN/D5w 200 MG IVPB 200 MG/100 ML BAG 100 MG IV ×2 (09:15→21:11)
[2024-07-14] MEDS: amLODIPine BESYLATE 5 MG TABLET 10 MG PO (09:15)
[2024-07-14] MEDS: Magnesium Sulfate 2 GM Ivpb 2 GM/50 ML BAG IV (10:14)
[2024-07-14] MEDS: INSULIN GLARGINE (Lantus) 5 UNIT/0.05 ML (PER 5 UNITS) 20 UNIT SC (10:17)
--- NOTE | 2024-07-14 12:10 | PC.SS ---
Ermelinda Infante is a 84 year old female admitted to [facility] Hyper[facility]. SS conducted over the phone contact with pt Rodrigo Infante to complete initial assessment as pt was altered at time of encounter. Rodrigo confirmed all demographic information. Pt is a long-term resident of [facility], per Rodrigo pt will return. At baseline pt is bedbound and unable to ambulate. Pt will require non-emergent transportation back to [facility] at the time of DC. SS will remain available for any additional needs or concerns. DC plan: [facility] Contact: -Rodrigo
--- NOTE | 2024-07-14 13:10 | ESPR_ITS ---
<Statement entered by Brooklyn Mahoney MD - 07/17/24 13:01> I reviewed above note and agree with findings and plans. I have also personally examined the patient with medicine team and went over assessment and plan with medical team including leadership intern and resident physician. Documentation for date of: 07/14/24 Subjective Subjective Interval history: No overnight events. Patent received a total of 52 units of insulin on 07/13/2024. Fasting blood glucose this morning at 123 with a A1c of 8.4% (07/14/2024). Given patient presentation of Hyperglycemic Hyperosmolar Syndrome on admission, patient will remain hospitalized to ensure adequate insulin regimen upon discharge to SNF. Currenlty resumed Glargine 20 units BID. Exam Vital Signs Temp Pulse Resp BP Pulse Ox O2 Del Method 97.9 F 70 26 H 148/71 H 95 Room Air 07/14/24 12:00 07/14/24 12:00 07/14/24 12:00 07/14/24 12:00 07/14/24 12:00 07/14/24 12:00 Narrative Exam General Appearance: Alert & Oriented X0, thin female who is lying in bed in no acute distress HEENT: Skull symmetrical and atraumatic. Conjunctivae pin and moist. Pupils equal, round, reactive to light and accommodation (PERRL). External ear without lesion or discharge. Straight, nares patient, mucosa pink, no discharge. No thyroid nodule appreciated. No cervical lymphadenopathy. Cardio: Normal Rate and Rhythm with S1 and S2 heart sounds. No murmurs or extra heart sounds auscultated. No bruits on carotid auscultation. No peripheral edema or cyanosis. Lungs: Symmetric with good expansion. Chest and back non-tender. Breath sounds vesicular without crackles, wheezing or rhonchi Abdomen: Non-tender, Non-distended, Normal Reactive Bowel Sounds, tenderness on supra-pubic palpation but no distention noted. Neuro: YES Alert, NO cooperative, No oriented to person, No place, and time. No Speech clear. CN grossly intact. Upper motor strength 5/5 and Lower motor strength 5/5. Sensation intact. Objective Labs 07/15/24 06:41 07/15/24 06:41 Labs: Laboratory Results - last 24 hr 07/13/24 07/13/24 07/13/24 14:16 16:51 21:20 WBC RBC Hgb Hct MCV MCH MCHC RDW Std Deviation Plt Count Neut % (Auto) Lymph % (Auto) Knott % (Auto) Eos % (Auto) Baso % (Auto) Neut # (Auto) Lymph # (Auto) Knott # (Auto) Eos # (Auto) Baso # (Auto) Immature Gran # (Auto) Absolute Nucleated RBC Immature Gran % Nucleated RBC % Sodium 141 142 142 Potassium 4.7 4.6 4.7 Chloride 114 H 116 H 114 H Carbon Dioxide 20.3 20.5 19.8 L Anion Gap 7 6 L 8 BUN 38 H 35 H 36 H Creatinine 1.7 H 1.5 H 1.5 H Estim Creat Clear Calc 27.2 L 30.8 L 30.8 L eGFR 30 L 34 L 34 L BUN/Creatinine Ratio 22 H 23 H 24 H Glucose 370 H 228 H D 194 H Calculated Osmolality 305 H 298 H 296 H Uric Acid Calcium 8.9 9.2 9.0 Corrected Calcium 9.7 10.0 9.9 Phosphorus 2.7 2.7 2.4 Magnesium Albumin 3.0 L 3.0 L 2.9 L 07/14/24 05:22 WBC 5.0 RBC 2.65 L Hgb 8.1 L Hct 24.8 L MCV 94 MCH 30.6 MCHC 32.7 RDW Std Deviation 51.5 H Plt Count 87 L Neut % (Auto) 46 Lymph % (Auto) 41 Knott % (Auto) 9 Eos % (Auto) 3 Baso % (Auto) 0 Neut # (Auto) 2.3 Lymph # (Auto) 2.0 Knott # (Auto) 0.4 Eos # (Auto) 0.2 Baso # (Auto) 0.0 Immature Gran # (Auto) 0.02 H Absolute Nucleated RBC 0.00 Immature Gran % 0 Nucleated RBC % 0 Sodium 143 Potassium 4.5 Chloride 116 H Carbon Dioxide 21.8 Anion Gap 5 L BUN 32 H Creatinine 1.5 H Estim Creat Clear Calc 30.8 L eGFR 34 L BUN/Creatinine Ratio 21 H Glucose 126 H D Calculated Osmolality 293 Uric Acid 8.4 H Calcium 9.0 Corrected Calcium Phosphorus 2.6 Magnesium 1.6 Albumin ABG Interpretation ABG results: 07/13/24 11:54 ABG pH 7.40 ABG pCO2 30 L ABG pO2 94 ABG HCO3 19 L ABG O2 Saturation 99 H ABG Base Excess -5 L Quality Measures Quality Measures VTE prophylaxis Advance care planning discussed with:: other Assessment & Plan Assessment Current Active Medications: Generic Name Dose Route Start Last Admin Trade Name Freq PRN Reason Stop Dose Admin Acetaminophen 650 mg 07/12/24 21:01 Acetaminophen 325 Mg Tablet PO 08/11/24 21:00 Q6H PRN Fever >101.5 Albuterol/Ipratropium 3 ml 07/12/24 21:43 Albuterol/Ipratropium (Duoneb) Rt Rosa 3 Ml Nebu INH 08/11/24 21:42 Q2HR PRN SHORTNESS OF BREATH OR WHEEZE Amlodipine Besylate 10 mg 07/13/24 09:00 07/14/24 09:15 Amlodipine Besylate 5 Mg Tablet PO 08/12/24 08:59 10 mg QDAY MAIRA Administration Dextrose 25 ml 07/13/24 15:27 Dextrose 50%-Water Inj 50 Ml Syringe IV 08/12/24 15:26 Q15MIN PRN BG 50-70 responsive npo pt Dextrose 50 ml 07/13/24 15:27 Dextrose 50%-Water Inj 50 Ml Syringe IV 08/12/24 15:26 Q15MIN PRN BG <50 OR BG <70 & pt unresponsive Glucagon 1 mg 07/13/24 15:27 Glucagon Inj 1 Mg Vial IM Q15MIN PRN BG <70, and no IV access Heparin Sodium (Porcine) 5,000 unit 07/12/24 22:00 07/14/24 05:54 Heparin Sod Inj 5000 Unit/Ml Vial SC 07/26/24 21:59 5,000 unit Q8HR MAIRA Administration Hydralazine HCl 10 mg 07/13/24 08:10 Hydralazine Inj 20 Mg/Ml Vial IV 08/12/24 08:09 Q4HR PRN Hypertension Ciprofloxacin/Dextrose 200 mg in 100 mls @ 100 mls/hr 07/13/24 10:27 07/14/24 09:15 Cipro Ivpb IV 07/20/24 10:26 100 mls/hr Q12HR MAIRA Administration Insulin Glargine 20 unit 07/14/24 09:00 07/14/24 10:17 Insulin Glargine (Lantus) 5 Unit/0.05 Ml (Per 5 Units) SC 08/13/24 08:59 20 unit BID MAIRA Administration Insulin Human Lispro 0 unit 07/14/24 11:30 07/14/24 11:53 Insulin Lispro (Admelog) 1 Unit/0.01 Ml Unit SC 08/13/24 11:29 Not Given ACHS [facility] Protocol Sennosides 1 tab 07/12/24 21:22 Senna Tablet PO 08/11/24 21:21 QDAY PRN CONSTIPATION Protocol Sodium Chloride 3 ml 07/12/24 18:36 07/12/24 18:44 Sodium Chloride Rt Rosa 0.9% 3 Ml Nebu INH 08/11/24 18:35 3 ml PRN PRN Administration SOLN Plan The patient is a 84-year-old female with a previous medical history of dementia, gout, CVA, hypertension, hyperlipidemia, who came in from [facility] secondary to hyperkalemia and hyperglycemia. #Hyperosmolar Hyperglycemic Syndrome, improved #Hyperglycemia, improved #Diabetes Mellitus Type 2, insulin dependent Per chart review, patient's glucose ranged from 400s to 500s at [facility] where patient lives and on admission patient's glucose was 319, this is despite getting 22 units of insulin. Subsequently during morning labs patient's fasting glucose was noted to be 409, patient was given 10 units of regular insulin subcu, 7 units of sliding scale of lispro, 15 units of lispro subcu at 12 PM as patient's glucose remained elevated in the 400s. Patient's glargine 20 units given at approximately 9 AM. During morning shift yolanda recieved a total insulin of--52 units of insulin. Given patient hyperglycemia, hyper-osmolarity at 313, patient was moving towards a hyperosmolar hyperglycemic state. 07/14/2024: Patient will remain hospitalized overnight to ensure adequate insulin dosing given [facility] on admission. Diagnostics: A1c 07/12/2024 9.1 and Fasting Glucose of 409-->Fasting glucose of 126 Plan -Glargine 20 units QDay -->Glargine 20 units BID -Lispro Slidng Scale QACHS -Please follow up with bedside glucose -Hypoglycemia, glucagon in place, if need be please given IVP of dextrose 20- 50ml #NEVA on CKD, improved Yolanda has a past medical history of CKD with GFR flutuating between 20s-30 putting patient at stage III vs IV. Previous admission patient's best Cr is between 1.3-1.4. This Creatine in a increase of >0.3 on this admission as Cr was 1.8. Likely pre-renal given BUN/Cr >20 and patient appears hypovolemic with oral mucosa dry. Obstructive secondary to urinary retention can not be ruled out but patient has been having several wet diapers and no supra-pubic distention was not on physical exam. Plan -Avoid nephrotoxins -renally dose medication (Cipro has no renal dosing adjustments) -Continue to monitor Cr, BUN #Hypernatremia, Hyerosmolar, Hypovolemic, resolved. Patient presented with osmolarity of 313, corrected Na of 150 and hypovolemic on clinical exam. Urine Na was 56, thus greater than >20. Hypernatremia likely secodnary to glycosuria given hyperglycemia vs renal failure which can not be ruled out given NEVA on CKD Total water deficiet 3.2 liters with idea calcuation of 142 Plan -Fluids D/C -continue to montior #Hyperkalemia, resolved Likely secondary to NEVA on CKD. Patient was given hyperkalemia treatment on admission w/ calcium and insulin admistered. Improved. Plan -Please follow up with renal funciton at 6 PM and 9 PM #Non Anion Gap Metabolic Acidosis, resolved Patient presented with a non-anion gap of 8, bicarb of 18.7, chloride of 118, and lactic acid of 1.7 with morning labs. ABG did not show a acidosis. Given this normal pattern RTA can not be ruled out vs saline infustion vs medication induced which would be less likely. Plan -Urine sodium -consider toxicology if patient does not improve -Consider urine elctrolytes if patient does not improved -continue to monitor #Hypertension Patient home medication resumed. Plan -Please monitor BP given maintenance fluid is on board -Please give hydralazine if BP >160 or diastolic BP >110, patient has a carvedilol allergy #uncomplicated UTI Given UA showing many bacteria, grimancing on physical exam, patient was started on Cipro. Yeast infection can not be ruled out given past medical history of diabetes mellitus. Plan -Urine Culture pending -Cipro 07/13/2024-07/15/2024, 3 day course Health Maintenance: Disp: Pt is currently admitted to floors for further management of hyperglycemia and hypernatremia, awaiting urine culture and management of appropriate insulin upon discharge given [facility]. FEN: dysphagia, low carb consistent DVT: on subQ heparin Code: DNR - The patient's plan was discussed with attending Dr. Mahoney and senior residents Dr. Temi Barrera MD PGY1 Internal Medicine Senior resident attestation: Patient evaluated and examined at the bedside, plan of care discussed with rest of the team including my attending physician, except as noted. Temi PGY2
[2024-07-14] MEDS: INSULIN LISPRO (AdmeLOG) 1 UNIT/0.01 ML UNIT SC (16:57)
[2024-07-15] VITALS: BP 147/82; PULSE 58; PULSE 66; RESP 16; TEMP 36.4; O2SAT 98
[2024-07-15 04:00] VITALS: BP 154/65; PULSE 60; PULSE 63; RESP 26; TEMP 36.5; O2SAT 96
[2024-07-15] MEDS: HEPARIN SOD INJ 5000 UNIT/ML VIAL SC (05:54)
[2024-07-15 06:00] VITALS: BMI 35.3
[2024-07-15 07:19] LABS: Basophils % (Auto) 0 % (0-2.5); Eosinophils # (Auto) 0.1 Thou/mm3 (0.0-0.5); Eosinophils % (Auto) 5 % (0-10); Hematocrit 23.5 % (36.0-46.0); Immature Granulocytes % (Auto) 0 % (0-0); Lymphocytes # (Auto) 1.2 Thou/mm3 (1.0-4.8); Lymphocytes % (Auto) 40 % (10-50); Mean Corpuscular HGB Conc 33.6 g/dl (31.0-37.0); Mean Corpuscular Hemoglobin 30.6 pg (25.0-35.0); Mean Corpuscular Volume 91 fL (80-100); Monocytes # (Auto) 0.3 Thou/mm3 (0.0-0.8); Monocytes % (Auto) 10 % (0-12); Neutrophils # (Auto) 1.4 Thou/mm3 (1.8-7.7); Neutrophils % (Auto) 46 % (37-80); Nucleated Red Blood Cell % 0 /100 WBC (0); RDW Standard Deviation 47.9 fL (36.4-46.3); Red Blood Count 2.58 Miln/mm3 (4.00-5.20); White Blood Count 3.1 Thou/mm3 (3.6-11.0)
[2024-07-15 07:36] LABS: Anion Gap 5 (7-16); BUN/Creatinine Ratio 19 Ratio (12-20); Blood Urea Nitrogen 27 mg/dL (9-23); Calcium 9.2 mg/dL (8.3-10.6); Carbon Dioxide 23.1 mMol/L (20.0-31.0); Chloride 112 mMol/L (98-107); Creatinine (Component) 1.4 mg/dL (0.6-1.3); Estimated Creatinine Clearance 33.8 mL/min (>60); Glucose 113 mg/dL (74-106); Magnesium 1.8 mg/dL (1.6-2.6); Osmolality,Calculated 285 (275-295); Phosphorous 2.6 mg/dL (2.4-5.1); Potassium 4.4 mMol/L (3.4-5.1); Sodium 140 mMol/L (136-145); eGFR 37 See Note
[2024-07-15 08:00] VITALS: BP 169/69; PULSE 58; PULSE 61; RESP 23; TEMP 36.9; O2SAT 97
[2024-07-15] MEDS: CIPROFLOXACIN/D5w 200 MG IVPB 200 MG/100 ML BAG 100 MG IV (08:18)
[2024-07-15 08:19] VITALS: BP 169/69; PULSE 61
[2024-07-15] MEDS: Magnesium Sulfate 2 GM Ivpb 2 GM/50 ML BAG IV (08:19)
[2024-07-15] MEDS: amLODIPine BESYLATE 5 MG TABLET 10 MG PO (08:19)
[2024-07-15 10:58] LABS: Hemoglobin 7.9 g/dL (12.0-16.0); Platelet Count 68 Thou/mm3 (140-440)
[2024-07-15 10:59] LABS: Slide Review Platelets confirmed
--- NOTE | 2024-07-15 11:04 | PC.SS ---
Addendum entered by ANUJA Harrison 07/15/24 14:35: ETA [facility]. Addendum entered by ANUJA Harrison 07/15/24 11:37: [facility] reference number for transportation:[id number] . Pending ETA Addendum entered by ANUJA Harrison 07/15/24 11:06: Maral at [facility] confirmed patient can return to facility today. Faxed updated clinicals to facility. Original Note: SS follow up: patient to return to [facility] today. Patient has DC orders. Spouse, Rodrigo is aware and agreeable with DC plan.
[2024-07-15 12:00] VITALS: BP 146/69; PULSE 65; PULSE 69; RESP 21; TEMP 36.1; O2SAT 98
[2024-07-15] MEDS: MUPIROCIN OINT 2% 15 GM TUBE TOP (12:34)
[2024-07-15] MEDS: INSULIN LISPRO (AdmeLOG) 1 UNIT/0.01 ML UNIT SC (12:34)
--- NOTE | 2024-07-15 13:52 | ESDS_ITS ---
<Statement entered by Brooklyn Mahoney MD - 07/21/24 13:47> I reviewed above note and agree with findings and plans. I have also personally examined the patient with medicine team and went over assessment and plan with medical team including internet marketing assistant and resident physician. Planned Discharge Date 07/15/24 DS: Providers Provider Date of admission: 07/13/24 15:11 Primary care physician: Thong Araujo MD Admitting Provider: Osvaldo Terry MD Attending Provider on Admission: Brooklyn Mahoney MD Consults: 07/14/24 18:36 Referral Registered Dietitian Routine Comment: Patient refusing meals; poor intake. Patient/demen Attending Provider on DC: Belinda Barrera MD Discharging Provider: Belinda Barrera MD DS: Diagnosis Problem List Completed Was Problem List Reviewed/Reconciled?: Yes Hospital Course Hospital Course Hospital course: Summary: The patient is a 84-year-old female with a previous medical history of dementia, gout, CVA, hypertension, hyperlipidemia, who came in from [facility] secondary to hyperkalemia and hyperosmolar hyperglycemic syndrome. ER Course: Blood pressure 183/81, pulse 98, afebrile, saturating well on room air. Labs showed hemoglobin 9.8, hematocrit 29.7, platelets 106, sodium 142, potassium 6.4, chloride 116, BUN 55, creatinine 1.9 (1.3 in 09/2023), glucose 319, AST 89, ALT 122, alkaline phosphatase 128. UA is pending. EKG showed sinus rhythm, QRS 85.Patient initially admitted for hyperkalemia and during admission found to be in hyperosmolar hyperglycemic state. Hospital Course: Patient was admitted overnight on 07/12/2024 with a glucose of 319 and found to have hyperkalemia of 6.4 which was given hyperkalemia treatment including albuterol breathing treatment and insulin regular 5 units. Downtrended overnight to 4.6. Patient's glucose noted to be 353 and osmolarity of 313. Patient received 52 units of insulin (including 20 glargine) which eventually down trendedto glucose of 184 by evening. Patient was held an additional day hospitilized given hyperosmolar hyperglycemic state to further manage patient's insulin regimen. Insulin glargine decreased from 20 units BID to 20 units HS given fasting blood glucose of 113 on 07/15/2024. Patient also noted to have suprapubic tenderness on physical exam with a urinlaysis that showed WBC of 73 and bacteria. Urine culture grew E. Coli. Patient is set to complete course of ciprofloxacin on 07/15/2024. Patient is safe to discharge to SNF. #Hyperosmolar Hyperglycemic Syndrome, resolved #Hyperglycemia, improved #Diabetes Mellitus Type 2, insulin dependent #NEVA on CKD, improved #Hypernatremia, Hyerosmolar, Hypovolemic, resolved. #Hyperkalemia, resolved #Non Anion Gap Metabolic Acidosis, resolved #Hypertension #uncomplicated UTI Instructions: -Insulin Glargine 20 units at night -Please continue to take your medication as prescribed -Fasting goal for glucose 100-130, given old age and glucose goal with meals under 200 -Please follow up with your primary doctor to make any adjustments with your insulin -Please follow up with your primary care provider within one week of discharge -If your symptoms worsen,please seek immediate medical attention and return to your nearest emergency room -If you do not have a primary care provider, you may follow up at the [facility] at [address] [place] [address] [address], [place] [address], Safe to discharge to SNF The patient's plan was discussed with attending Dr Mahoney and senior residents Dr. Temi Barrera MD PGY1 Internal Medicine Senior resident attestation: The patient is a 84-year-old female past medical history dementia, gout, CVA, hypertension hyperlipidemia, who admitted to the hospital with chief complaint of altered mental status, UTI and NEVA with hyperkalemia. Patient was brought in by ambulance, with a blood sugar in the 500s, and GCS 11/15, she was found to have hyper glycemia and hyperosmolarity, concern for hyperglycemic hyperosmolar syndrome started on IV fluids aggressively and subcu insulin. Over the course of her hospital stay serum osmolarity continued to improved and serum glucose improved. Patient was started on subcu insulin Lantus and Premeal insulin. At the time of discharge mental status back at baseline The patient is stable, afebrile and tolerating Per oral medications at the time of discharge. The patient understood and agreed to the treatment plan. # Acute metabolic encephalopathy # Hyperosmolar hyperglycemic syndrome # Diabetes mellitus # UTI # NEVA # Hyperkalemia # History of stroke # History of gout # History of dementia # Hyperlipidemia Patient evaluated and examined at the bedside, plan of care discussed with rest of the team including my attending physician, except as noted. Temi PGY2 Time Spent with Patient Time attestation: Total time spent providing and/or coordinating discharge services: at least thirty minutes of care and coordination Time spent: Greater than 30 minutes Exam Vital Signs Temp Pulse Resp BP Pulse Ox O2 Del Method 96.9 F 69 21 H 146/69 H 98 Room Air 07/15/24 12:00 07/15/24 12:07/15/24 12:07/15/24 12:07/15/24 12:07/15/24 12:00 Narrative Exam General Appearance: Alert & Oriented X0, thin female who is lying in bed in no acute distress HEENT: Skull symmetrical and atraumatic. Conjunctivae pin and moist. Pupils equal, round, reactive to light and accommodation (PERRL). External ear without lesion or discharge. Straight, nares patient, mucosa pink, no discharge. No thyroid nodule appreciated. No cervical lymphadenopathy. Cardio: Normal Rate and Rhythm with S1 and S2 heart sounds. No murmurs or extra heart sounds auscultated. No bruits on carotid auscultation. No peripheral edema or cyanosis. Lungs: Symmetric with good expansion. Chest and back non-tender. Breath sounds vesicular without crackles, wheezing or rhonchi Abdomen: Non-tender, Non-distended, Normal Reactive Bowel Sounds, tenderness on supra-pubic palpation but no distention noted. Neuro: YES Alert, NO cooperative, No oriented to person, No place, and time. Speech not clear. CN grossly intact. Upper motor strength 5/5 and Lower motor strength 5/5. Sensation intact. Discharge Plan Plan Patient Disposition: Xfer Skilled Nsg Fac (SNF) Patient condition on transfer: Stable Care Plan Goals: Instructions: -Insulin Glargine 20 units at night -Please continue to take your medication as prescribed -Fasting goal for glucose 100-130, given old age and glucose goal with meals under 200 -Please follow up with your primary doctor to make any adjustments with your insulin -Please follow up with your primary care provider within one week of discharge -If your symptoms worsen,please seek immediate medical attention and return to your nearest emergency room -If you do not have a primary care provider, you [facility] [address], [place] [address], Prescriptions/Referrals Prescriptions/Med Rec: New insulin glargine U-300 conc 300 unit/mL (1.5 mL) insulin pen 20 unit subcut HS 30 Days Qty: 2.001 0RF ciprofloxacin HCl 500 mg tablet 500 mg PO BID Qty: 1 0RF Rx Instructions: 1 more dose of antibiotic to complete treatment for UTI Continued bisacodyl [Dulcolax (bisacodyl)] 10 mg Suppository 10 mg MI Q72H PRN (Reason: Constipation) Rx Instructions: GIVE IF NO BM AFTER MOM amlodipine 10 mg tablet 10 mg PO QDAY ipratropium-albuterol 0.5 mg-3 mg(2.5 mg base)/3 mL solution for nebulization 3 ml INHALATION Q6H PRN (Reason: shortness of breath or wheezing) acetaminophen [Tylenol] 325 mg Tablet 650 mg PO QID PRN (Reason: Pain, Mild) artificial tears(hypromellose) 0.3 % Drops 1 drp OPHTHALMIC (EYE) Q6H PRN (Reason: Dry Eyes) insulin lispro 100 unit/mL insulin pen See Protocol subcut AC Protocol: Insulin Corrective High-Dose Regimen Condition: Fingerstick Blood Glucose Dose/Route: Insulin Units Condition: 141-180 mg/dl Dose/Route: 6 units/SQ Condition: 181-220 mg/dl Dose/Route: 8 units/SQ Condition: 221-260 mg/dl Dose/Route: 10 units/SQ Condition: 261-300 mg/dl Dose/Route: 12 units/SQ Condition: 301-350 mg/dl Dose/Route: 14 units/SQ Condition: 351-400 mg/dl Dose/Route: 16 units/SQ Condition: greater than 400 mg/dl Dose/Route: 18 units/SQ Discontinued insulin glargine [Lantus Solostar U-100 Insulin] 100 unit/mL (3 mL) insulin pen 20 unit SUBCUT BID Referrals: Thong Araujo MD [Primary Care Provider] - Patient/Caregiver Discharge Instructions Education Materials: Blood Sugar Monitoring and ..., UITs Women Print Language: Serbian Stand Alone Forms: Shilrey Award Info., Patient Portal Info Letter Discharge Order Discharge Orders: Discharge (Routine); Ordered 07/15/24 Ordered By: Cruz Martini Quality Discharge Quality Measures VTE prophylaxis
[2024-07-15 15:30] VITALS: BP 152/69; PULSE 64; RESP 28; TEMP 36.4; O2SAT 98
--- NOTE | 2024-07-15 16:09 | PC.NURSE ---
Report given to Chapis ROSSI at [facility], pt BP 172/78 due to tensing up during bp being taken, Dr. Membreno ordered to recheck in 5 min. Recheck bp 152/[address] Membreno to discharge. PT missing belongings, only belongings at bedside are blanket, socks and baby doll. possibly took other belongings home before discharge.
== END 2024-07-15 15:56 | disposition skilled nursing facility (03) | DRG 640 ==
LOC: SERX 21:01 → S3NX 07-13 07:35 → SERHOLD 07-13 09:54 → S3NX 07-13 15:56 → S2NX 07-13 15:57
PROVIDERS: Registered Nurse General Practice; Admitting Provider Internal Medicine; Emergency Provider Emergency Medicine; PCP Hospitalist; Visit Provider Internal Medicine
DX: E87.5 Hyperkalemia (principal); G93.41 Metabolic encephalopathy; N17.9 Acute kidney failure, unspecified; R47.01 Aphasia; N39.0 Urinary tract infection, site not specified; E87.20 Acidosis, unspecified; Z66 Do not resuscitate; F03.90 Unspecified dementia, unspecified severity, without behavioral disturbance, psychotic disturbance, mood disturbance, and anxiety; F41.9 Anxiety disorder, unspecified; M10.9 Gout, unspecified; E78.5 Hyperlipidemia, unspecified; N18.9 Chronic kidney disease, unspecified; I12.9 Hypertensive chronic kidney disease with stage 1 through stage 4 chronic kidney disease, or unspecified chronic kidney disease; E11.22 Type 2 diabetes mellitus with diabetic chronic kidney disease; E86.0 Dehydration; R41.89 Other symptoms and signs involving cognitive functions and awareness; E11.65 Type 2 diabetes mellitus with hyperglycemia; Z86.73 Personal history of transient ischemic attack (TIA), and cerebral infarction without residual deficits; Z79.4 Long term (current) use of insulin; B96.20 Unspecified Escherichia coli [E. coli] as the cause of diseases classified elsewhere; E87.0 Hyperosmolality and hypernatremia; E86.1 Hypovolemia; B37.9 Candidiasis, unspecified
CPT/HCPCS: 36415; 36600; 80048; 80053; 80069; 81001; 82803; 83036; 83605; 83735; 84100; 84132; 84300; 84550; 85025; 87077; 87081; 87086; 87186; 92610; 93005; 94640; 94664; 99285; G0378; J0612; J0744; J1643; J1815; J3475; J7030; J7120; A9270

== ENCOUNTER 2025-01-23 12:31 | Emergency (ER) | payer MEDICARE, BC, MEDICAID, SELFPAY ==
[2025-01-23 12:33] VITALS: PULSE 67; RESP 16; O2SAT 98
--- NOTE | 2025-01-23 12:37 | XR_ITS ---
Examination: CT maxillofacial, without intravenous contrast. 2-D sagittal reconstructions. 3-D reconstructions. Date and time of exam: January 23, 2025, 1302 hours INDICATIONS: Ground-level fall today with injury to the face, facial pain CTDI: vol (mGy): 16.7 DLP: (mGycm): 346 Technique: Multiple axial images of maxillofacial region, 3.0 mm slice thickness. 2-D sagittal and coronal reconstructions. 3-D reconstructions. Low dose protocols were performed. One or more of the following dose reduction techniques were used; automated exposure control, adjustment of the mA and/or KV according to patient size, use of iterative reconstruction technique. Findings: Frontal bone intact Large comminuted blowout fracture inferior right orbital rim with downward displacement of the right inferior rectus muscle Bilateral displaced angulated nasal bone fractures Fracture anterior nasal septum Fracture posterior medial right maxillary antrum Blood in the right maxillary antrum Globes appear grossly intact Pterygoid plates maxilla intact as well as mandible IMPRESSION: Large comminuted blowout fracture right inferior orbital rim with downward displacement of the right inferior rectus muscle, entrapment not excluded Displaced bilateral angulated nasal bone fractures Fracture anterior nasal septum Fracture posterior medial right maxillary antrum.
--- NOTE | 2025-01-23 12:37 | XR_ITS ---
Examination: CT cervical spine without contrast 2-D sagittal reconstructions 2-D coronal reconstructions 3-D reconstructions. Exam date and time: January 23, 2025, 1302 hours INDICATION: Ground-level fall today with injury to the neck, neck pain CTDI:vol (mGy) 14.4 DLP: (mGycm) 381 Technique: Multiple 2 mm axial sections of the cervical spine have been obtained. The coronal and sagittal reconstructions have been obtained. 3-D reconstructions have been obtained. Low dose protocols were performed. One or more of the following dose reduction techniques were used; automated exposure control, adjustment of the mA and/or KV according to patient size, use of iterative reconstruction technique. Findings: Axial sections demonstrate intact base of the skull. C1 exhibit satisfactory relationship to the odontoid. Tiny radiolucency involving the superior cortex C5 vertebral body, sagittal image 49, consistent with nondisplaced fracture Alignment of the vertebral bodies and posterior spinous processes intact Impression: Tiny fracture involving the superior endplate C5 vertebral body, sagittal image 49 No vertebral body compression fracture Satisfactory alignment of cervical vertebral bodies and posterior spinous processes
--- NOTE | 2025-01-23 12:37 | XR_ITS ---
Examination: Wrist, left 3 views Technique: Wrist AP, oblique, lateral 3 views Date and time of exam: January 23, 2025, 1238 hours INDICATIONS: Patient fell today with injury to the wrist, wrist pain. FINDINGS: Severe osteopenia No acute fracture No dislocation IMPRESSION: No acute fracture Recommend short-term follow-up wrist films as clinically warranted, given the severe osteopenia
--- NOTE | 2025-01-23 12:37 | XR_ITS ---
Examination: CT brain head without contrast. 2-D sagittal coronal reconstructions Date and time of exam: January 23, 2025, 1300 hours INDICATIONS: Ground-level fall today with injury to the head, head pain CTDI: vol (mGy): 48.3 DLP: (mGycm): 988 Technique: Multiple CT axial sections of the brain have been obtained, 5 mm slice thickness. Contrast has not been administered. 2-D sagittal, coronal reconstructions have been obtained Low dose protocols were performed. One or more of the following dose reduction techniques were used; automated exposure control, adjustment of the mA and/or KV according to patient size, use of iterative reconstruction technique. Findings: No significant ventricular enlargement. Bilateral prominent temporal horns Intra-axial or extra-axial hemorrhage density is not seen. No mass effect or midline shift Basal cisterns are not remarkable. Fourth ventricle is midline. Cranial vault intact. Impression: Negative for acute hemorrhage, mass effect or midline shift Please see the CT maxillofacial report
--- NOTE | 2025-01-23 12:39 | EDNOTE_ITS ---
<Statement entered by Ana Paula Herron MD - 01/23/25 17:57> As co-signing physician, I was present and available for consult prn. I concur with the plan and care as documented by the midlevel provider. ED General RME/HPI General Chief complaint: Fall Stated complaint: FALL Time Seen by Provider: 01/23/25 12:37 Arrival date/time: 01/23/25 12:31 CC: Fall out of wheelchair HPI patient is nonverbal secondary to dementia coming from [facility] transitional living with the patient was reaching for a jolly bear he per report from EMS and fell. Patient has also obvious facial deformities and is holding her left wrist. EMS reports stable vital signs. Related Data Home Medications ?Medication ?Instructions ?Recorded ?Confirmed bisacodyl 10 mg rectal suppository 10 mg SC Q72H PRN C onstipation 03/21/23 07/13/24 (Dulcolax (bisacodyl)) acetaminophen 325 mg tablet 650 mg PO QID PRN Pain, Mi ld 10/15/23 07/13/24 (Tylenol) artificial tears(hypromellose) 0.3 1 drp ophthalmic (e ye) Q6H PRN Dry 10/15/23 0 07/13/24 % eye drops Eyes insulin lispro 100 unit/mL See Protocol subcut AC 09/2907/13/24 subcutaneous pen amlodipine 10 mg tablet 10 mg PO QDAY 07/13/2407/13 ipratropium 0.5 mg-albuterol 3 mg 3 ml inhalation Q6H PRN shortness 07/13/24 07/13/24 (2.5 mg base)/3 mL nebulization of breath or wheezing soln Previous Rx's ?Medication ?Instructions ?Recorded ciprofloxacin HCl 500 mg tablet 500 mg PO BID #1 tab 0 07/15/24 Allergies Allergy/AdvReac Type Severity Reaction Status Date / Time carvedilol Allergy Verified 01/23/25 12:36 Cephalosporins Allergy Verified 01/23/25 12:36 Penicillins Allergy Verified 01/23/25 12:36 Review of Systems Review of Systems ROS Unobtainable: unobtainable due to mental status Past Medical History Past Medical History NEUROLOGIC: Positive Neurological Disorders, Dementia and Alzheimer's Disease CARDIAC: Positive Cardiac Disorders and Hypertension; Negative Congestive Heart Failure RESPIRATORY: Positive Asthma; Negative Chronic Obstructive Pulmonary Disease (COPD) GENITOURINARY: Positive Renal Disease MUSCULOSKELETAL: Positive Gout ENDOCRINE: Positive Diabetes Mellitus Type 2; Negative Diabetes Mellitus Type 1 HEMATOLOGIC: Negative Sickle Cell Disease PSYCHO/SOCIAL: Positive Depression OTHER HISTORY: Positive Falls Social History SMOKING STATUS: Never smoker SUBSTANCE USE: unknown ED Exam Narrative Physical exam: [General: Obese appears not in any acute distress Head no scalp asymmetry depression laceration abrasion, face: There is a facial edema on the right side small amount of oozing from both nares. Edema with ecchymosis to the right cheek. HEENT: Eyes: Pupils are PERRLA EOMs are intact mouth [place] dry membranes uvula is midline swallow symmetrical. Nose: Epistaxis minimal amount from both nares. Ears no otorrhea, no raccoon's eyes or Garza sign. Neck is supple Chest equal chest rise nontender to palpation Respiratory: Clear to auscultation no wheezes crackles or rubs CV: Rate rhythm is regular no murmurs rubs or clicks Abdomen is distended secondary to body habitus soft nontender no masses positive bowel sounds all 4 quadrants Back: No CVA tenderness no spinous process tenderness from cervical spine thoracic and lumbar spine Skin: Intact no petechiae rash induration ulceration or crepitus Extremities: Moving all extremity against resistance cap refill less than 2 seconds neurosensory intact Neuro: Awake alert nonverbal Course Course Course Narrative: Patient's case and clinical findings discussed with sister listed in contacts Ms. Melita Lopez at area code [phone], as patient has no entrapment patient will be returned back to [facility] transitional care with an orbital fracture. Our discussion was surrounded how to help prevent falls as the patient is demented and nonambulatory. Ms. Lopez was advised to contact Dr. Sawyer and for suggestions for further precautions against falls. Patient remains nonverbal. The edema of the upper and lower lid on the right side is significant, there still is no entrapment with opening the lids. At this time the patient will be discharged back home I do not feel the patient needs any further intervention although there can be an outpatient referral to maxillofacial for consideration for monitoring during the healing process. The patient is a DNR. Case discussed with Dr Herron prior to disposition. Quality Measures none Orders Category Date Time Status CT cervical spine wo con Stat Exams 01/23/25 12:[address] facial bones wo con Stat Exams 01/23/25 12:[address] head/brain wo con Stat Exams 01/23/25 12:37 Completed XR wrist comp LT min 3V Stat Exams 01/23/25 12:37 Completed Vital Signs Vital signs: Vital Signs Temperature 97.6 F 01/23/25 13:14 Pulse Rate 62 01/23/25 13:14 Respiratory Rate 16 01/23/25 13:14 Blood Pressure 183/82 H 01/23/25 13:14 Pulse Oximetry (%) 99 01/23/25 13:14 Oxygen Delivery Method Room Air 01/23/25 13:14 Discharge Plan Plan Patient Disposition: HOME (Self Care) Patient condition on transfer: Stable Prescriptions/Referrals Prescriptions/Med Rec: No Action bisacodyl [Dulcolax (bisacodyl)] 10 mg Suppository 10 mg SC Q72H PRN (Reason: Constipation) Rx Instructions: GIVE IF NO BM AFTER MOM amlodipine 10 mg tablet 10 mg PO QDAY ipratropium-albuterol 0.5 mg-3 mg(2.5 mg base)/3 mL solution for nebulization 3 ml INHALATION Q6H PRN (Reason: shortness of breath or wheezing) ciprofloxacin HCl 500 mg tablet 500 mg PO BID Qty: 1 0RF Rx Instructions: 1 more dose of antibiotic to complete treatment for UTI acetaminophen [Tylenol] 325 mg Tablet 650 mg PO QID PRN (Reason: Pain, Mild) artificial tears(hypromellose) 0.3 % Drops 1 drp OPHTHALMIC (EYE) Q6H PRN (Reason: Dry Eyes) insulin lispro 100 unit/mL insulin pen See Protocol subcut AC Protocol: Insulin Corrective High-Dose Regimen Condition: Fingerstick Blood Glucose Dose/Route: Insulin Units Condition: 141-180 mg/dl Dose/Route: 6 units/SQ Condition: 181-220 mg/dl Dose/Route: 8 units/SQ Condition: 221-260 mg/dl Dose/Route: 10 units/SQ Condition: 261-300 mg/dl Dose/Route: 12 units/SQ Condition: 301-350 mg/dl Dose/Route: 14 units/SQ Condition: 351-400 mg/dl Dose/Route: 16 units/SQ Condition: greater than 400 mg/dl Dose/Route: 18 units/SQ Referrals: No Primary/Family,Physician [Primary Care Provider] - In 1 week Problem List Clinical Impression: Fracture of right orbit, Closed fracture nasal bone, Fall Patient/Caregiver Discharge Instructions Other Activity Instructions:: Explore other options for preventing falls. Follow-up with your primary care doctor. There is no entrapment of the right eye at this time. If there is noted is entrapment in the right eye return to the emergency room for further evaluation. Education Materials: ED Facial Fracture Print Language: Qatari Stand Alone Forms: Shirley Award Info., Patient Portal Info Letter PA/BOX CHIPPER Supervising Physician PA/BOX CHIPPER Supervising Physician: Ammon Kelly ENP MDM Meds/Rx considered, not ordered None Labs/Rad/Tests considered, not ordered None Chronic Illness/Social Conditions Explain: Dementia nonverbal Labs Labs: none Imaging Imaging interpretation: interpreted by me Imaging Interpretation(s): CT head and C-spine negative CT face shows a right orbital fracture and nose fracture. Diagnosis Differential Diagnosis ED Complaint MDM: Closed head injury neck fracture wrist fracture
[2025-01-23 13:14] VITALS: BP 183/82; PULSE 62; RESP 16; TEMP 36.4; O2SAT 99
[2025-01-23 14:06] VITALS: BP 190/67; PULSE 66; RESP 14; TEMP 36.4; O2SAT 100
--- NOTE | 2025-01-23 16:04 | PC.CC ---
Traffic Investigator, Lorin made aware by Mariaa who reported that patient is returning to [facility]. CC contacted [facility] and spoke to Kaiam to schedule S transportation. [facility] reference number: [id number].
[2025-01-23 16:11] VITALS: BP 168/73; PULSE 71; RESP 15; TEMP 36.6; O2SAT 98
[2025-01-23 17:55] VITALS: BP 152/79; PULSE 64; RESP 19; TEMP 36.8; O2SAT 92
== END 2025-01-23 17:55 | disposition skilled nursing facility (03) ==
PROVIDERS: Emergency Provider Emergency Medicine
DX: S02.2XXA Fracture of nasal bones, initial encounter for closed fracture (principal); F03.90 Unspecified dementia, unspecified severity, without behavioral disturbance, psychotic disturbance, mood disturbance, and anxiety; S02.85XA Fracture of orbit, unspecified, initial encounter for closed fracture; W05.0XXS Fall from non-moving wheelchair, sequela
CPT/HCPCS: 70450; 70486; 72125; 73110; 99282